=== PATIENT | male | born 1955 | race Caucasian/White ===

== ENCOUNTER → 2016-09-18 | Outpatient (CLI) | payer BC ==
[~2016-09-18] MED LIST: ALBUTEROL17 GM INH; AMARYL PO; AMARYL2 MG PO; ASPIRIN81 M2 PO; CARDIZEM LA240 MG PO; CLOPIDOGREL BIS75 MG PO; ELIQUIS5 MG PO; EYE GTT; FLAGYL250 M1 PO; FLEXERIL PO; FLOVENT HFA12 GM INH; GLUCOPHAGE500 MG PO; LEVAQUIN250 MG PO; LEVEMIR FL100 UNIT/1 SUBQ; LISINOPRIL PO; LISINOPRIL-HCTZ1 T15 PO; LISINOPRIL-HCTZ1 T17 PO; LISINOPRIL2.5 MG PO; LOPRESSOR; LOPRESSOR PO; LOTEMAX5 ML OP; LOTEMAX5 ML OU; METFORMIN HCL500 M1 PO; METOPROLOL SUCC50 MG PO; NITROGLYCERIN0.4 MG SL; NITROGLYGERIN0.4 MG SL; NOVOLOG FL100 UNIT/1 SUBQ; PAROXETINE HCL20 M1 PO; PERCOCET5/325 PO; PLAVIX PO; SIMVASTATIN20 MG PO; SIMVASTATIN40 MG PO; VICODIN PO; ZOCOR PO
[2016-09-18 10:27] LABS: CALCIUM SERUM 9.2 mg/dL (8.4-10.2); CREATININE SERUM 0.7 mg/dL (0.6-1.4); GLOM FILT RATE Estimated 103.3 mL/min (>60); MAGNESIUM 1.8 mg/dL (1.6-3.0); POTASSIUM 3.6 mmol/L (3.5-5.1)
== END | disposition home or self-care (01) ==
LOC: CLAB 08:33
DX: I50.33 Acute on chronic diastolic (congestive) heart failure (principal)
CPT/HCPCS: 36415; 80048; 83735

== ENCOUNTER → 2016-11-08 | Outpatient (CLI) | payer BC | END | disposition home or self-care (01) | LOC: CNUC 08:31 | DX: I25.10 Atherosclerotic heart disease of native coronary artery without angina pectoris (principal) ==

== ENCOUNTER → 2016-11-14 | Outpatient (CLI) | payer BC ==
--- NOTE | ~2016-11-14 | ST ---
Unit #: [id number] #: [id number] Patient: PONCE HAYWOOD [id number] [address] [address] [id number] O MR#: [id number] NAME: PONCE HAYWOOD : 1955 SEX: M STUDY DATE/TIME: UNIT: CN ROOM: STUDY DESCRIPTION: Stress ECG Attending Physician: Tirso Flores M.D. Referring Physician: Tirso Flores M.D. Primary Care Physician: Cirilo Vang M.D. CARDIOLOGY REPORT EXAM Stress ECG RESULTS Result text under Nuclear Study. Please see Nuclear Study for result text. Dictated by... Deon Marquez/halley TD: 11/14/2016 12:48 JOB #: [id number] CARDIOLOGY REPORT Page 1 of 1 X Tirso Flores MD CARDIOLOGY REPORT
--- NOTE | ~2016-11-14 | TH ---
Unit #: [id number] #: [id number] Patient: PONCE HAYWOOD [id number] [address] [place], [place] [address] [id number] O MR#: [id number] NAME: PONCE HAYWOOD : 1955 SEX: M STUDY DATE/TIME: UNIT: [facility] ROOM: STUDY DESCRIPTION: Nuclear Study/ECG Stress Attending Physician: Tirso Flores M.D. Referring Physician: Tirso Flores M.D. Primary Care Physician: Cirilo Vang M.D. CARDIOLOGY REPORT EXAM Stress Nuclear and ECG Combined INDICATION Inability to exercise, atrial fibrillation, coronary artery disease, status post stenting, diabetes, hypertension, dyslipidemia, for the diagnosis of coronary disease contributing to the patient's atrial fibrillation in a patient unable to exercise. SUMMARY The patient was in atrial fibrillation through this study. ECG showed nonspecific ST changes in lead III and AVL. With stress, there were no diagnostic ST shifts, no additional dysrhythmias, no heart block. Heart rate increased from 63 to 74%, and blood pressure decreased 156/108 to 148/102. There were no symptoms during this study. With the technetium 99 Cardiolite, 10.92 and 32.6 mCi injected at rest and stress respectively. Perfusion images demonstrate no significant perfusion defect either at rest or stress. There is chest wall attenuation artifact noted at rest, and diaphragmatic artifact more obvious during rest than at stress. End diastolic volume is large at 150 mL, and gated perfusion wall motion analysis shows ejection fraction 50% with no discrete wall motion abnormalities. There is no significant patient motion noted either at rest or stress. LV is large. RV is poorly seen. There is no increased lung uptake. Summed stress score is 1. IMPRESSION 1. Myocardial perfusion scan shows no ischemia or infarction. 2. Normal wall motion with excellent ejection fraction. 3. No significant LV enlargement, with low normal LV function. Dictated by... Tirso Flores M.D. MAREN/halley TD: 11/14/2016 12:41 JOB #: [id number] Unit #: [id number] #: [id number] Patient: PONCE HAYWOOD CARDIOLOGY REPORT Page 1 of 1 X Tirso Flores MD CARDIOLOGY REPORT
== END | disposition home or self-care (01) ==
LOC: CNUC 07:30
DX: I25.10 Atherosclerotic heart disease of native coronary artery without angina pectoris (principal); Z98.61 Coronary angioplasty status
CPT/HCPCS: 78452; 93017; A9500; J2785